=== PATIENT | female | born 1945 | race Two or more races ===

== ENCOUNTER 2019-09-26 09:36 | Emergency (ER) | payer OTHER ==
[~2019-09-26] VITALS: Ht 147.3 cm; Wt 71.7 kg
[~2019-09-26 09:36] MED LIST: LISINOPRIL2.5 MG
[2019-09-26] MEDS ORDERED: COZAAR100 MG (10:06)
== END 2019-09-26 14:06 | disposition home or self-care (01) ==
LOC: ER 09:36 → EDBD 10:14 → ER 14:06
DX: S00.83XA Contusion of other part of head, initial encounter (principal); R42 Dizziness and giddiness; W18.09XA Striking against other object with subsequent fall, initial encounter; Y93.89 Activity, other specified; Y92.018 Other place in single-family (private) house as the place of occurrence of the external cause; Y99.8 Other external cause status

== ENCOUNTER → 2020-11-06 08:00 | Outpatient (CLI) | payer OTHER ==
[~2020-11-06] VITALS: Ht 157.5 cm; Wt 63.5 kg
[~2020-11-06 08:00] MED LIST changes: +COZAAR100 MG; +COZAAR100 MG PO; +SYNTHROID75 MCG PO
== END | disposition home or self-care (01) ==
LOC: LAB 08:00 → EDSTATUS 11-13 09:30 → SURH 11-13 09:30
PROVIDERS: ATTEND Obstetrics & Gynecology
DX: U07.1 COVID-19 (principal); I10 Essential (primary) hypertension

== ENCOUNTER 2020-12-22 13:49 | Outpatient (CLI) | payer OTHER | END 2020-12-22 13:57 | disposition home or self-care (01) | LOC: TOM 13:49 | PROVIDERS: ATTEND Urology | DX: N20.0 Calculus of kidney (principal); N39.3 Stress incontinence (female) (male); N81.11 Cystocele, midline; C67.8 Malignant neoplasm of overlapping sites of bladder; I10 Essential (primary) hypertension ==

== ENCOUNTER 2020-12-22 15:07 | Outpatient (CLI) | payer OTHER | END 2020-12-22 15:12 | disposition home or self-care (01) | LOC: EKG 15:07 | PROVIDERS: ATTEND Urology | DX: I11.9 Hypertensive heart disease without heart failure (principal) ==

== ENCOUNTER 2020-12-30 05:41 | Day surgery (SDC) | payer OTHER | END 2020-12-30 12:55 | disposition home or self-care (01) | LOC: CIR.AMB 05:41 | PROVIDERS: ATTEND Urology | DX: C67.8 Malignant neoplasm of overlapping sites of bladder (principal); Z20.822 Contact with and (suspected) exposure to COVID-19 ==

== ENCOUNTER 2021-01-20 08:29 | Inpatient (IN) | payer OTHER ==
[~2021-01-20] VITALS: Ht 149.9 cm; Wt 68.9 kg
== END 2021-01-23 10:05 | disposition home or self-care (01) | DRG 748 ==
LOC: CIR.AMB 08:29 → OB/GYN 15:24 → O/R 15:24 → OB/GYN 15:56
PROVIDERS: Urology; ADMIT Obstetrics & Gynecology; ATTEND Obstetrics & Gynecology
PROC: 0TSD0ZZ Reposition Urethra, Open Approach (ICD-10-PCS; 2021-01-20)
PROC: 0TJB8ZZ Inspection of Bladder, Via Natural or Artificial Opening Endoscopic (ICD-10-PCS; 2021-01-20)
PROC: 0JQC0ZZ Repair Pelvic Region Subcutaneous Tissue and Fascia, Open Approach (ICD-10-PCS; principal; 2021-01-20 07:00)
PROC: 0JQC0ZZ Repair Pelvic Region Subcutaneous Tissue and Fascia, Open Approach (ICD-10-PCS; 2021-01-20 07:00)
DX: N81.10 Cystocele, unspecified (principal); N81.5 Vaginal enterocele; N39.3 Stress incontinence (female) (male)

== ENCOUNTER 2021-02-16 15:40 | Outpatient (CLI) | payer OTHER | END 2021-02-16 18:50 | disposition home or self-care (01) | LOC: LAB 15:40 | PROVIDERS: ATTEND Urology | DX: M30.0 Polyarteritis nodosa (principal) ==

== ENCOUNTER 2021-10-05 09:45 | Inpatient (IN) | payer OTHER ==
[~2021-10-05] VITALS: Ht 157.5 cm; Wt 70.3 kg
[2021-10-11] MEDS ORDERED: LOSARTAN POTAS100 MG PO (15:12)
[2021-10-11] MEDS ORDERED: DECADRON6 MG PO (15:13)
== END 2021-10-11 17:25 | disposition home or self-care (01) | DRG 177 ==
LOC: ER 09:45 → MEDJ 23:47
PROVIDERS: ADMIT Internal Medicine; ATTEND Internal Medicine
PROC: 3E0F7SF Introduction of Other Gas into Respiratory Tract, Via Natural or Artificial Opening (ICD-10-PCS; principal; 2021-10-05)
PROC: 3E0F7GC Introduction of Other Therapeutic Substance into Respiratory Tract, Via Natural or Artificial Opening (ICD-10-PCS; 2021-10-05)
PROC: 8E0ZXY6 Isolation (ICD-10-PCS; 2021-10-05)
PROC: 4A12X4Z Monitoring of Cardiac Electrical Activity, External Approach (ICD-10-PCS; 2021-10-06)
PROC: BW25ZZZ Computerized Tomography (CT Scan) of Chest, Abdomen and Pelvis (ICD-10-PCS; 2021-10-06)
DX: U07.1 COVID-19 (principal); J12.82 Pneumonia due to coronavirus disease 2019; R09.02 Hypoxemia; I10 Essential (primary) hypertension; E03.8 Other specified hypothyroidism; Z20.822 Contact with and (suspected) exposure to COVID-19

== ENCOUNTER 2023-02-10 10:36 | Day surgery (SDC) | payer OTHER ==
[~2023-02-10] VITALS: Ht 154.9 cm; Wt 69.4 kg
[~2023-02-10 10:36] MED LIST changes: +COZAAR50 MG PO; +CRESTOR5 MG PO; +DECADRON6 MG PO; +LOSARTAN POTAS100 MG PO
== END 2023-02-10 19:15 | disposition home or self-care (01) ==
LOC: CIR.AMB 10:36
PROVIDERS: ATTEND Surgery
DX: K80.00 Calculus of gallbladder with acute cholecystitis without obstruction (principal); R59.0 Localized enlarged lymph nodes; Z20.822 Contact with and (suspected) exposure to COVID-19; I10 Essential (primary) hypertension; E03.9 Hypothyroidism, unspecified

== ENCOUNTER 2023-07-07 18:13 | Emergency (ER) | payer OTHER ==
[~2023-07-07] VITALS: Ht 152.4 cm; Wt 72.6 kg
== END 2023-07-07 21:47 | disposition home or self-care (01) ==
LOC: ER 18:13
DX: R42 Dizziness and giddiness (principal); I10 Essential (primary) hypertension

== ENCOUNTER 2024-11-04 08:09 | Outpatient (CLI) | payer OTHER | END 2024-11-04 08:21 | disposition home or self-care (01) | LOC: TOM 08:09 | PROVIDERS: ATTEND Urology | DX: N32.81 Overactive bladder (principal); C67.9 Malignant neoplasm of bladder, unspecified ==

== ENCOUNTER 2024-11-04 09:17 | Outpatient (CLI) | payer OTHER | END 2024-11-04 09:18 | disposition home or self-care (01) | LOC: NUCLEAR 09:17 | DX: I87.2 Venous insufficiency (chronic) (peripheral) (principal) ==